=== PATIENT | male | born 1980 | race Caucasian/White ===

== ENCOUNTER 2018-08-20 19:23 | Observation (INO) | payer BC ==
[~2018-08-20] VITALS: Ht 175.3 cm; Wt 94.8 kg
--- NOTE | 2018-08-20 22:16 | ERD ---
ER Documentation Chief Complaint Chief Complaint chest pain HPI The patient is a 38-year-old male, presenting to the ER because of substernal chest pain with dyspnea that began around 1 PM, denies similar symptoms previously, the symptom is worse if he lies down, better with sitting up. He denies similar symptoms previously, denies fever, cough, neck pain, chest pain with exertion/vomiting/radiation/diaphoresis, dyspnea, abdominal pain, vomiting. He does smoke half a pack a day, denies drinking or using illicit drug Medical history/surgical history: None ROS All systems reviewed and are negative except as per history of present illness. Medications Home Meds No Active Prescriptions or Reported Meds Allergies Allergies: Coded Allergies: No Known Allergy (Unverified , 08/20/18) PMhx/Soc Medical and Surgical Hx: pt denies Medical Hx History of Surgery: No Anesthesia Reaction: No Hx Neurological Disorder: No Hx Respiratory Disorders: No Hx Cardiac Disorders: No Hx Psychiatric Problems: No Hx Miscellaneous Medical Probl: No Hx Alcohol Use: No Hx Substance Use: No Hx Tobacco Use: Yes Smoking Status: Current some day smoker Physical Exam Vitals Vital Signs Date Temp Pulse Resp B/P (MAP) Pulse Ox O2 O2 Flow FiO2 Time Delivery Rate 08/21/18 79 18 119/83 100 Room Air 00:28 (95) 08/20/18 83 18 150/95 98 Room Air 21:56 (113) 08/20/18 99.3 92 20 128/82 96 19:30 (97) Physical Exam Const: No acute distress. Head: Atraumatic. Eyes: Normal Conjunctiva. ENT: Normal External Ears, Nose and Mouth. Neck: Full range of motion. No meningismus. Resp: Clear to auscultation bilaterally. Cardio: Regular rate and rhythm. Abd: Soft, non distended, normal bowel sounds, non tender. Skin: No petechiae or rashes. Back: No midline or flank tenderness. Ext: No cyanosis, or edema. Neur: Awake and alert. No focal deficit Psych: Normal Mood and Affect. Result Diagram: 08/20/18221708/20/182217 Results 24 hrs Laboratory Tests Test 08/20/18 22:18 White Blood Count 9.1 10^3/ul Red Blood Count 4.66 10^6/ul Hemoglobin 13.9 g/dl Hematocrit 40.8 % Mean Corpuscular Volume 87.6 fl Mean Corpuscular Hemoglobin 29.8 pg Mean Corpuscular Hemoglobin Concent 34.1 g/dl Red Cell Distribution Width 12.9 % Platelet Count 225 10^3/UL Mean Platelet Volume 10.1 fl Immature Granulocytes % 0.400 % Neutrophils % 75.2 % Lymphocytes % 11.8 % Monocytes % 12.2 % Eosinophils % 0.2 % Basophils % 0.2 % Nucleated Red Blood Cells % 0.0 /100WBC Immature Granulocytes # 0.040 10^3/ul Neutrophils # 6.9 10^3/ul Lymphocytes # 1.1 10^3/ul Monocytes # 1.1 10^3/ul Eosinophils # 0.0 10^3/ul Basophils # 0.0 10^3/ul Nucleated Red Blood Cells # 0.0 10^3/ul Erythrocyte Sedimentation Rate 11 mm/Hr D-Dimer 694.51 ng/ml Sodium Level 135 mmol/L Potassium Level 4.3 mmol/L Chloride Level 98 mmol/L Carbon Dioxide Level 25 mmol/L Anion Gap 12 Blood Urea Nitrogen 14 mg/dl Creatinine 0.70 mg/dl Est Glomerular Filtrat Rate mL/min > 60 mL/min Glucose Level 129 mg/dl Calcium Level 9.2 mg/dl Total Bilirubin 0.7 mg/dl Direct Bilirubin 0.00 mg/dl Indirect Bilirubin 0.7 mg/dl Aspartate Amino Transf (AST/SGOT) 44 IU/L Alanine Aminotransferase (ALT/SGPT) 60 IU/L Alkaline Phosphatase 65 IU/L Troponin I < 0.012 ng/ml Total Protein 8.0 g/dl Albumin 4.6 g/dl Globulin 3.40 g/dl Albumin/Globulin Ratio 1.35 Lipase 29 U/L Current Medications Medications Dose Sig/Parisa Start Time Status Last (Trade) Ordered Route PRN Stop Time Admin Dose Reason Admin Ketorolac 30 mg ONCE STAT 08/20/18 DC 08/20/18 Tromethamine IV 23:02 23:07 (Toradol) 08/20/18 23:04 Procedures/[place] [id number] Radiology Main Line: [phone] DIAGNOSTIC IMAGING REPORT Patient: BRETT BAKER : 1980 Age: 38 Sex: M MR #: [id number] DOS: 08/20/182301 Ordering MD: MARY GONZALEZ MD Location: E/R Room/Bed: PROCEDURE: Chest. CLINICAL INDICATION: Chest pain. TECHNIQUE: Single frontal view of the chest was obtained. COMPARISON: None. FINDINGS: The cardiac silhouette is magnified. The aortic arch is unremarkable. There is bibasilar atelectasis and left basilar infiltrate. There is no vascular congestion or pleural effusion. There is no pneumothorax. IMPRESSION: Bibasilar atelectasis and left basilar infiltrate. .Bharat Ivy MD, MD Date Time Electronically viewed and signed by .Bharat Ivy MD, on 08/21/2018 00:40 .T/ CC: MARY GONZALZE MD [id number] [place] [address] Radiology Main Line: [phone] DIAGNOSTIC IMAGING REPORT Patient: BRETT BAKER : 1980 Age: 38 Sex: M MR #: [id number] DOS: 08/20/182301 Ordering MD: MARY GONZALEZ MD Location: E/R Room/Bed: PROCEDURE: Abdominal ultrasound, limited. CLINICAL INDICATION: Abdominal pain. TECHNIQUE: Multiple real-time images were acquired of the patient's right upper abdomen utilizing a high resolution transducer. COMPARISON: None FINDINGS: The liver demonstrates increased echogenicity and size measuring 18.9 cm. There is no focal mass or intrahepatic biliary ductal dilatation. The portal vein is patent. The gallbladder is not distended. No gallstones are identified. There is echogenic sludge within the gallbladder. There is no pericholecystic fluid or gallbladder wall thickening. The common bile duct measures 5.5 mm in maximal dimension. The pancreas is obscured by overlying bowel gas. No free fluid is identified. The right kidney is normal size and echogenicity measuring 11.8 cm. There is no focal renal mass or echogenic calculus identified. There is no obstructive uropathy. IMPRESSION: Gallbladder sludge without ultrasound evidence of cholecystitis. Mildly enlarged liver with fatty infiltration. Pancreas obscured by overlying bowel gas. .Bharat Ivy MD, MD Date Time Electronically viewed and signed by .Bharat Ivy MD, MD on 08/21/2018 00:46 .T/ CC: MARY GONZALEZ MD [id number] Chest CTA pending EK:33 PM read by emergency physician Rate/Rhythm: Normal Sinus Rhythm 90 beats/min QRS, ST, T-waves: No ST elevation, no T inversion, diffuse ST elevation Impression: Abnormal EKG, suspected acute pericarditis EK:10 PM read by emergency physician Rate/Rhythm: Normal Sinus Rhythm 82 beats/min QRS, ST, T-waves: No ST elevation, no T inversion, diffuse ST elevation Impression: Abnormal EKG, suspected acute pericarditis MEDICAL MAKING DECISION: The patient is a 38-year-old male, presenting with acute chest pain that is suspicious for acute pericarditis, acute pneumonia. He was treated with Toradol 30 mg IV for pain upon arrival, Motrin 600 mg p.o. for acute pericarditis, Rocephin IV and Zithromax IV for acute pneumonia with good response. The differential diagnoses considered include but are not limited to asthma, COPD, pneumonia, pulmonary embolus, pleural effusion, congestive heart failure. Departure Diagnosis: Primary Impression: Pneumonia Additional Impression: Pericarditis Condition: Stable Comments I discussed the findings with the patient. I discussed the patient with Dr Flores at 1:30 a , who was made aware of the lab, the treatment, the patient condition. The patient is admitted to tel obs Disclaimer: Inadvertent spelling and grammatical errors are likely due to EHR/dictation software use and do not reflect on the overall quality of patient care. Also, please note that the electronic time recorded on this note does not necessarily reflect the actual time of the patient encounter. MARY GONZALEZ MD Aug 20, 2018 22:16
[2018-08-20] MEDS ORDERED: KETOROLAC 30 MG INJ IV STA (23:02)
[2018-08-21] VITALS (10 sets, daily range): BP systolic 112–127; BP diastolic 67–73; PULSE 70–90; RESP 16–20; Ht 175.3 cm; Wt 94.8 kg
[2018-08-21] MEDS ORDERED: CEFTRIAXONE 1 GM/50 ML (PMX) 50 ML IVPB ONE (01:30)
[2018-08-21] MEDS ORDERED: IBUPROFEN 600 MG TAB PO ONE (01:30)
[2018-08-21] MEDS ORDERED: AZITHROMYCIN 500MG/NS (PMX) 250 ML IVPB ONE (01:30)
[2018-08-21] MEDS ORDERED: ONDANSETRON 4 MG INJ IV PRN (02:30)
[2018-08-21] MEDS ORDERED: NITROGLYCERIN (SL) 0.4 MG TAB SL PRN (02:30)
[2018-08-21] MEDS ORDERED: ACETAMINOPHEN 325 MG TAB PO PRN (02:30)
[2018-08-21] MEDS ORDERED: NACL 0.9% 3 ML SYG IV SCH (02:30)
[2018-08-21] MEDS: IBUPROFEN 200 MG TAB PO SCH ×4 (02:30→20:54)
[2018-08-21] MEDS ORDERED: ALBUTEROL/IPRATROPIUM (NEB) 3 ML AMP HHN PRN (02:30)
[2018-08-21] MEDS ORDERED: IOHEXOL 300MG/ML 150 ML BTL ONE (03:25)
[2018-08-21] MEDS ORDERED: SOD CHLORIDE 0.9% 100 ML ONE (03:25)
[2018-08-21] MEDS: HYDROCODONE/APAP (5/325) TAB PO PRN ×2 (04:28→11:06)
[2018-08-21] MEDS: ASPIRIN 81 MG TAB PO SCH (08:31)
[2018-08-21] MEDS: HEPARIN 5,000 UNIT/1 ML VIAL SC SCH ×2 (08:38→20:58)
--- NOTE | 2018-08-21 09:32 | HP ---
Date/Time of Note Date/Time of Note DATE: 08/21/18 TIME: 09:26 Assessment/Plan VTE Prophylaxis Pharmacological prophylaxis: heparin Lines/Catheters IV Catheter Type (from Nrsg): Peripheral IV Assessment/Plan Assessment/Plan 1. Chest pain, most likely secondary to pericarditis -Patient reported having had watery diarrhea for the past 3 days, so suspect viral etiology -will however rule out ACS -He will be placed on NSAIDs, colchicine and also steroid -Repeat EKG -Obtain a 2D echo and place a cardiology consult 2. Pericardial effusion: Likely secondary to above 3. Questionable pneumonia: Empiric antibiotic 4. Diarrhea: Resolved Result Diagram: 08/21/18 0642 08/21/18 0642 Results 24hrs Laboratory Tests Test 08/20/18 22:18 08/21/18 06:42 White Blood Count 9.1 5.7 # Red Blood Count 4.66 L 4.26 L Hemoglobin 13.9 L 12.5 L Hematocrit 40.8 L 36.9 L Mean Corpuscular Volume 87.6 86.6 Mean Corpuscular Hemoglobin 29.8 29.3 Mean Corpuscular Hemoglobin Concent 34.1 33.9 Red Cell Distribution Width 12.9 13.2 Platelet Count 225 169 # Mean Platelet Volume 10.1 10.0 Immature Granulocytes % 0.400 0.200 Neutrophils % 75.2 55.2 Lymphocytes % 11.8 L 24.4 Monocytes % 12.2 H 19.7 H Eosinophils % 0.2 0.3 Basophils % 0.2 0.2 Nucleated Red Blood Cells % 0.0 0.0 Immature Granulocytes # 0.040 H 0.010 Neutrophils # 6.9 3.2 Lymphocytes # 1.1 1.4 Monocytes # 1.1 H 1.1 H Eosinophils # 0.0 0.0 Basophils # 0.0 0.0 Nucleated Red Blood Cells # 0.0 0.0 Erythrocyte Sedimentation Rate 11 D-Dimer 694.51 H Sodium Level 135 137 Potassium Level 4.3 4.0 Chloride Level 98 102 Carbon Dioxide Level 25 25 Anion Gap 12 10 Blood Urea Nitrogen 14 11 Creatinine 0.70 0.63 Est Glomerular Filtrat Rate mL/min > 60 > 60 Glucose Level 129 112 Calcium Level 9.2 8.7 Total Bilirubin 0.7 1.0 Direct Bilirubin 0.00 0.00 Indirect Bilirubin 0.7 1.0 Aspartate Amino Transf (AST/SGOT) 44 38 Alanine Aminotransferase (ALT/SGPT) 60 50 Alkaline Phosphatase 65 50 Troponin I < 0.012 < 0.012 Total Protein 8.0 6.6 # Albumin 4.6 3.8 Globulin 3.40 H 2.80 Albumin/Globulin Ratio 1.35 1.35 Lipase 29 Hemoglobin A1c 5.8 Magnesium Level 2.0 Creatine Kinase 111 Creatine Kinase Index 1.6 Creatinine Kinase MB (Mass) 1.77 Triglycerides Level 60 Cholesterol Level 102 LDL Cholesterol, Calculated 60 HDL Cholesterol 30 Cholesterol/HDL Ratio 3.4 Thyroid Stimulating Hormone (TSH) 0.637 HPI/ROS Admit Date/Time Admit Date/Time Aug 21, 2018 at 01:29 Hx of Present Illness This is a 38-year-old male with no significant past medical history who presents the ER complaining of chest pain. Symptoms been going on for the past few days. He said pain almost only occurs when he takes a deep breath. On further questioning, he reported having had watery diarrhea for the past 3 days. Chest pain is mainly located in the mid chest. Initially it was radiating into his left arm and bilateral jaw. Pain was described as pressure-like. Denied a history of chest pain in the past. 20 presented to ER, vitals were stable. EKG shows diffuse ST elevation. T roponin so far have been negative. Chest x-ray shows left basilar infiltrate and bilateral atelectasis. CTPA shows Fairly large areas of bilateral lower lobe infiltrates and moderate pericardial effusion. PMH/Family/Social Past Medical History Medical History: no pertinent history Medications Current Medications IV Flush (NS 3 ml) 3 ml PER PROTOCOL IV ; Start 08/21/18 at 02:30 Ondansetron HCl (Zofran Inj) 4 mg Q6H PRN IV NAUSEA/VOMITING; Start 08/21/18 at 02:30 Aspirin (Aspirin) 81 mg DAILY PO Last administered on 08/21/18at 08:31; Admin Dose 81 MG; Start 08/21/18 at 09:00 Nitroglycerin (Nitroglycerin (Sl Tab) 0.4 Mg) 1 tab Q5M PRN SL .CHEST PAIN; Start 08/21/18 at 02:30 Acetaminophen (Tylenol Tab) 650 mg Q6H PRN PO .PAIN 1-3 OR TEMP; Start 08/21/18 at 02:30 Acetaminophen/ Hydrocodone Bitart ([place] (5/325)) 1 tab Q6H PRN PO .PAIN 4-6 Last administered on 08/21/18at 04:28; Admin Dose 1 TAB; Start 08/21/18 at 02:30 Heparin Sodium (Porcine) (Heparin (5000 Units/1ml)) 5,000 unit Q12 SC Last ad ministered on 08/21/18at 08:38; Admin Dose 5,000 UNIT; Start 08/21/18 at 09:00 Albuterol/ Ipratropium (Duoneb) 3 ml Q2H RESP THERAPY PRN HHN SHORTNESS OF BREATH; Start 08/21/18 at 02:30 Ibuprofen (Motrin) 400 mg Q6H PO Last administered on 08/21/18at 08:32; Admin Dose 400 MG; Start 08/21/18 at 02:30 Colchicine (Colchicine) 0.6 mg BID PO ; Start 08/21/18 at 09:30; Status UNV Methylprednisolone Sodium Succinate (Solu-Medrol) 60 mg DAILY IV ; Start 08/21/18 at 09:30; Status UNV Levofloxacin/ Dextrose 100 ml @ 100 mls/hr Q24H IVPB ; Start 08/21/18 at 09:30; Status UNV Coded Allergies: No Known Allergy (Unverified , 08/20/18) Past Surgical History Past Surgical Hx: no surgical history Family History Significant Family History: no pertinent family hx Social History Alcohol Use: none Smoking Status: Current every day smoker Drug Use: none Exam/Review of Systems Vital Signs Vitals Vital Signs Date Temp Pulse Resp B/P (MAP) Pulse Ox O2 O2 Flow FiO2 Time Delivery Rate 08/21/18 77 08:25 08/21/18 98.3 18 112/69 93 Room Air 07:52 (83) 08/21/18 2.0 04:46 Intake and Output 08/20/18 08/20/18 08/21/18 1515:00 23:00 07:00 IntakeIntake Total 500 ml BalanceBalance 500 ml Exam Constitutional: alert, oriented, well developed Head: normocephalic, atraumatic Eyes: EOMI, PERRL Respiratory: clear to auscultation, normal air movement Cardiovascular: regular rate and rhythm, nl pulses Gastrointestinal: soft, non-tender Extremities: normal pulses PURVI BYRD MD Aug 21, 2018 09:32
[2018-08-21] MEDS: METHYLPREDNISOLONE 125 MG INJ IV SCH (10:49)
[2018-08-21] MEDS: COLCHICINE 0.6 MG TAB PO SCH ×2 (10:49→20:54)
[2018-08-21] MEDS: LEVOFLOXACIN 500MG/D5W (PMX) 100 ML IVPB SCH (10:50)
--- NOTE | 2018-08-21 14:44 | PN ---
Date/Time of Note Date/Time of Note DATE: 08/21/18 TIME: 14:42 Assessment/Plan VTE Prophylaxis Risk score (from Ns)>0 risk: 1 [place] [facility] [place] contraindicated: other Pharmacological prophylaxis: heparin Lines/Catheters IV Catheter Type (from [facility]): Peripheral IV Assessment/Plan Hospital Course S: Patient still having some occasional chest pain, getting colchicine, steroids and ibuprofen. Still waiting to be seen by cardiology team. No acute events overnight. O: VS - see below PE: Gen: Lying in bed, no acute distress. Head: Atraumatic. Eyes: Normal Conjunctiva. ENT: Normal External Ears, Nose and Mouth. Neck: Full range of motion. No meningismus. Resp: Clear to auscultation bilaterally. Cardio: Regular rate and rhythm. Abd: Soft, non distended, normal bowel sounds, non tender. Ext: No lower extremity edema bilaterally Neur: No focal deficits Assessment/Plan: 38-year-old male who presents with: 1. Chest pain, most likely secondary to pericarditis -Patient reported having had watery diarrhea for the past 3 days, so suspect viral etiology -will however rule out ACS -He will be placed on NSAIDs, colchicine and also steroid -Repeat EKG -Obtain a 2D echo and place a cardiology consult 2. Pericardial effusion: Likely secondary to above 3. Questionable pneumonia: Empiric antibiotic 4. Diarrhea: Resolved Result Diagram: 08/21/18 0642 08/21/18 0642 Results 24hrs Laboratory Tests Test 08/20/18 22:18 08/21/18 06:42 08/21/18 11:05 White Blood Count 9.1 5.7 # Red Blood Count 4.66 L 4.26 L Hemoglobin 13.9 L 12.5 L Hematocrit 40.8 L 36.9 L Mean Corpuscular Volume 87.6 86.6 Mean Corpuscular Hemoglobin 29.8 29.3 Mean Corpuscular Hemoglobin Concent 34.1 33.9 Red Cell Distribution Width 12.9 13.2 Platelet Count 225 169 # Mean Platelet Volume 10.1 10.0 Immature Granulocytes % 0.400 0.200 Neutrophils % 75.2 55.2 Lymphocytes % 11.8 L 24.4 Monocytes % 12.2 H 19.7 H Eosinophils % 0.2 0.3 Basophils % 0.2 0.2 Nucleated Red Blood Cells % 0.0 0.0 Immature Granulocytes # 0.040 H 0.010 Neutrophils # 6.9 3.2 Lymphocytes # 1.1 1.4 Monocytes # 1.1 H 1.1 H Eosinophils # 0.0 0.0 Basophils # 0.0 0.0 Nucleated Red Blood Cells # 0.0 0.0 Erythrocyte Sedimentation Rate 11 D-Dimer 694.51 H Sodium Level 135 137 Potassium Level 4.3 4.0 Chloride Level 98 102 Carbon Dioxide Level 25 25 Anion Gap 12 10 Blood Urea Nitrogen 14 11 Creatinine 0.70 0.63 Est Glomerular Filtrat Rate mL/min > 60 > 60 Glucose Level 129 112 Calcium Level 9.2 8.7 Total Bilirubin 0.7 1.0 Direct Bilirubin 0.00 0.00 Indirect Bilirubin 0.7 1.0 Aspartate Amino Transf (AST/SGOT) 44 38 Alanine Aminotransferase (ALT/SGPT) 60 50 Alkaline Phosphatase 65 50 Troponin I < 0.012 < 0.012 < 0.012 Total Protein 8.0 6.6 # Albumin 4.6 3.8 Globulin 3.40 H 2.80 Albumin/Globulin Ratio 1.35 1.35 Lipase 29 Hemoglobin A1c 5.8 Magnesium Level 2.0 Creatine Kinase 111 84 Creatine Kinase Index 1.6 1.5 Creatinine Kinase MB (Mass) 1.77 1.28 Triglycerides Level 60 Cholesterol Level 102 LDL Cholesterol, Calculated 60 HDL Cholesterol 30 Cholesterol/HDL Ratio 3.4 Thyroid Stimulating Hormone (TSH) 0.637 Exam/Review of Systems Exam Vitals Vital Signs Date Temp Pulse Resp B/P (MAP) Pulse Ox O2 O2 Flow FiO2 Time Delivery Rate 08/21/18 87 13:25 08/21/18 98.7 16 112/68 98 Room Air 11:13 (83) 08/21/18 2.0 04:46 Intake and Output 08/20/18 08/20/18 08/21/18 1414:59 22:59 06:59 IntakeIntake Total 500 ml BalanceBalance 500 ml Results Results 24hrs Laboratory Tests Test 08/20/18 22:18 08/21/18 06:42 08/21/18 11:05 White Blood Count 9.1 5.7 # Red Blood Count 4.66 L 4.26 L Hemoglobin 13.9 L 12.5 L Hematocrit 40.8 L 36.9 L Mean Corpuscular Volume 87.6 86.6 Mean Corpuscular Hemoglobin 29.8 29.3 Mean Corpuscular Hemoglobin Concent 34.1 33.9 Red Cell Distribution Width 12.9 13.2 Platelet Count 225 169 # Mean Platelet Volume 10.1 10.0 Immature Granulocytes % 0.400 0.200 Neutrophils % 75.2 55.2 Lymphocytes % 11.8 L 24.4 Monocytes % 12.2 H 19.7 H Eosinophils % 0.2 0.3 Basophils % 0.2 0.2 Nucleated Red Blood Cells % 0.0 0.0 Immature Granulocytes # 0.040 H 0.010 Neutrophils # 6.9 3.2 Lymphocytes # 1.1 1.4 Monocytes # 1.1 H 1.1 H Eosinophils # 0.0 0.0 Basophils # 0.0 0.0 Nucleated Red Blood Cells # 0.0 0.0 Erythrocyte Sedimentation Rate 11 D-Dimer 694.51 H Sodium Level 135 137 Potassium Level 4.3 4.0 Chloride Level 98 102 Carbon Dioxide Level 25 25 Anion Gap 12 10 Blood Urea Nitrogen 14 11 Creatinine 0.70 0.63 Est Glomerular Filtrat Rate mL/min > 60 > 60 Glucose Level 129 112 Calcium Level 9.2 8.7 Total Bilirubin 0.7 1.0 Direct Bilirubin 0.00 0.00 Indirect Bilirubin 0.7 1.0 Aspartate Amino Transf (AST/SGOT) 44 38 Alanine Aminotransferase (ALT/SGPT) 60 50 Alkaline Phosphatase 65 50 Troponin I < 0.012 < 0.012 < 0.012 Total Protein 8.0 6.6 # Albumin 4.6 3.8 Globulin 3.40 H 2.80 Albumin/Globulin Ratio 1.35 1.35 Lipase 29 Hemoglobin A1c 5.8 Magnesium Level 2.0 Creatine Kinase 111 84 Creatine Kinase Index 1.6 1.5 Creatinine Kinase MB (Mass) 1.77 1.28 Triglycerides Level 60 Cholesterol Level 102 LDL Cholesterol, Calculated 60 HDL Cholesterol 30 Cholesterol/HDL Ratio 3.4 Thyroid Stimulating Hormone (TSH) 0.637 Medications Medication Current Medications IV Flush (NS 3 ml) 3 ml PER PROTOCOL IV ; Start 08/21/18 at 02:30 Ondansetron HCl (Zofran Inj) 4 mg Q6H PRN IV NAUSEA/VOMITING; Start 08/21/18 at 02:30 Aspirin (Aspirin) 81 mg DAILY PO Last administered on 08/21/18at 08:31; Admin Dose 81 MG; Start 08/21/18 at 09:00 Nitroglycerin (Nitroglycerin (Sl Tab) 0.4 Mg) 1 tab Q5M PRN SL .CHEST PAIN; Start 08/21/18 at 02:30 Acetaminophen (Tylenol Tab) 650 mg Q6H PRN PO .PAIN 1-3 OR TEMP; Start 08/21/18 at 02:30 Acetaminophen/ Hydrocodone Bitart ([place] (5/325)) 1 tab Q6H PRN PO .PAIN 4-6 Last administered on 08/21/18 11:06; Admin Dose 1 TAB; Start 08/21/18 at 02:30 Heparin Sodium (Porcine) (Heparin (5000 Units/1ml)) 5,000 unit Q12 SC Last administered on 08/21/18 08:38; Admin Dose 5,000 UNIT; Start 08/21/18 at 09:00 Albuterol/ Ipratropium (Duoneb) 3 ml Q2H RESP THERAPY PRN HHN SHORTNESS OF BREATH; Start 08/21/18 at 02:30 Ibuprofen (Motrin) 400 mg Q6H PO Last administered on 08/21/18 13:46; Admin Dose 400 MG; Start 08/21/18 at 02:30 Colchicine (Colchicine) 0.6 mg BID PO Last administered on 08/21/18 10:49; Admin Dose 0.6 MG; Start 08/21/18 at 09:30 Methylprednisolone Sodium Succinate (Solu-Medrol) 60 mg DAILY IV Last administered on 08/21/18 10:49; Admin Dose 60 MG; Start 08/21/18 at 09:30 Levofloxacin/ Dextrose 100 ml @ 100 mls/hr Q24H IVPB Last administered on 08/21/18 10:50; Admin Dose 100 MLS/HR; Start 08/21/18 at 09:30 ALISSA EDEN Aug 21, 2018 14:44
--- NOTE | 2018-08-21 17:01 | RADRPT ---
Vent Rate: 82 bpm RR Interval: 0 msec TN Interval: 144 msec QRS Duration: 104 msec QT Interval: 366 msec QTC Interval: 427 msec P-R-T [place]: 28 - 48 - 46 degrees Normal sinus rhythm Diffuse ST segment abn, possible Acute pericarditis Abnormal ECG Electronically Signed By: Naun Salazar
--- NOTE | 2018-08-21 21:56 | RADRPT ---
Echocardiogram Report Patient Name: Nemesio BAKERtient ID: [id number] : 1980 (38y 6m)Study Date: 08/21/2018 11:13:44 AM Gender: MAccession #: [id number] Tech: Nixon Ye [facility] Location: 8-A Ref.Physician: PURVI BYRD Height(Cm): BSA: Weight(Kg): Quality: AdequateAccount #: Procedures: Echocardiographic Report: Transthoracic echocardiogram with complete 2D, M-Mode, and doppler examination. Indications: Chest Pain. Measurements: 2D/M Mode Doppler Measurement Value Normal Range Measurement Value Normal Range LVIDd 2D 4.5 [ 4.2 - 5.8 ] cm AV Peak Max 1.2 [ 100.0 - 170.0 ] cm/sec LVIDs 2D 3.0 [ 2.5 - 4.0 ] cm AV Peak PG 6.0 [ 2.0 - 9.0 ] mmHg LVPWd 2D 1.0 [ 0.6 - 1.0 ] cm LVOT Peak Amx 0.9 [ 70.0 - 110.0 ] cm/sec IVSd 2D 1.4 [ 0.6 - 1.0 ] cm LVOT Peak PG 3.0 [ 2.0 - 6.0 ] mmHg AoR Diam 2D 2.8 [ 2.6 - 3.4 ] cm MV E Peak Max 0.6 [ 60.0 - 130.0 ] cm/sec EDV 2D 92.4 [ 62.0 - 150.0 ] ml MV A Peak Max 0.4 [ 100.0 - 120.0 ] cm/sec ESV 2D 36.4 [ 21.0 - 61.0 ] ml MV E/A 1.4 [ 0.8 - 1.5 ] ratio EF 2D 60.6 [ 52.0 - 72.0 ] percent MV Decel Time 211 [ 104 - 258 ] msec LA Dimen 2D 3.0 [ 3.0 - 4.0 ] cm Lat E` Max 0.1 [ 10.0 - 15.0 ] cm/sec Lateral E/E` 10.8 [ 1.0 - 2.0 ] ratio MV E/A 1.4 [ 0.8 - 1.5 ] ratio TR Peak Max 2.2 [ 100.0 - 280.0 ] cm/sec TR Peak PG 19.0 mmHg RVSP 27.0 [ 10.0 - 36.0 ] mmHg Findings: Left Ventricle: Normal left ventricular systolic function. Normal left ventricular cavity size. Mild asymmetric septal hypertrophy. Ejection fraction is visually estimated at 55 %. Tissue Doppler/Mitral Doppler indices are consistent with impaired relaxation (Stage I diastolic dysfunction). Right Ventricle: Normal right ventricular systolic function. Moderate enlargement of right ventricle. Left Atrium: The left atrium is normal in size. Right Atrium: There is moderate enlargement of right atrium. Mitral Valve: Mild mitral leaflet calcification. Mild mitral annular calcification. Trace mitral regurgitation. Aortic Valve: No hemodynamically significant aortic stenosis by doppler. Aortic cusps appear mildly calcified. Tricuspid Valve: Normal appearance of the tricuspid valve. Estimated peak PA systolic pressure 27 mmHg. There is mild tricuspid regurgitation. Pulmonic Valve: Normal pulmonic valve appearance. Pericardium: small to moderate pericardial effusion. Aorta: Normal aortic root. IVC: Normal size with poor respiratory collapse consistent with elevated right atrial pressure. Conclusions: Normal left ventricular systolic function. Normal left ventricular cavity size. Mild asymmetric septal hypertrophy. Ejection fraction is visually estimated at 55 %. Tissue Doppler/Mitral Doppler indices are consistent with impaired relaxation (Stage I diastolic dysfunction). There is moderate enlargement of right atrium. Mild mitral leaflet calcification. Mild mitral annular calcification. Trace mitral regurgitation. Normal appearance of the tricuspid valve. Estimated peak PA systolic pressure 27 mmHg. There is mild tricuspid regurgitation. small to moderate pericardial effusion. Electronically Signed By: Buster Dominguez 2018-08-21 21:55:31 PDT
--- NOTE | 2018-08-21 22:41 | CONS ---
DATE OF ADMISSION: 08/21/2018 DATE OF CONSULTATION: 08/21/2018 REASON FOR CONSULTATION: Chest pain, and acute coronary syndrome. REQUESTING PHYSICIAN: Dr. Eden, from the hospitalist service. HISTORY OF PRESENT ILLNESS: The patient is a very pleasant 38-year-old male without significant past medical history who presented with complaints of chest pain, worse lying down, deep inspiration and associated shortness of breath ongoing for 2 to 3 days. At this time, the patient had diarrhea x2 to 3 days. The patient presented to the emergency department where upon arrival, temperature of 99.3, blood pressure 128/82, pulse 92, respirations 20, saturating 98%. The patient's labs, white count 9. 1 and 30.9, platelet 225. ESR of 11. Sodium 135, potassium 4.3, creatinine 0.7, BUN 14. Troponin n egative. Lipase of 29. TSH of 0.637. D-dimer 694. The patient underwent a gallbladder ultrasound, which revealed gallbladder sludge without ultrasound evidence of cholecystitis, mildly enlarged live r and fatty infiltration, a chest x-ray revealed bibasilar atelectasis and left basilar infiltrate an d chest CTA showed no evidence of pulmonary embolus or aortic dissection, fairly large area of bilate ral lobe infiltrates, questionable pneumonia, moderate pericardial effusion. ECG revealed sinus rhythm at a rate of [address] defect elevations diffusely, most pronounced in tammy ds II, III, F, V5 and V6. IMPRESSION: 1. Chest pain with sinus status post EKG being most consistent with a likely diagnosis of pericardit is. 2. Probable pericarditis. 3. Abnormal electrocardiogram with ST elevation diffusely consistent with pericarditis. 4. Possible pneumonia by CT and chest x-ray. 5. Loose stools, now resolved. 6. Elevated D-dimer with negative CTA for pulmonary embolism. 7. Pericardial effusion by CT with no signs of hemodynamic consequence at this time by vital signs a nd physical exams. RECOMMENDATIONS: 1. At this time, we would maintain the patient on telemetry monitoring to follow rhythm and rate con trol closely. 2. We will follow up patient's 2D echo to assess ejection fraction, wall motion, and assess for sign ificant pericardial effusion as per CT. 3. Continue the patient's on ibuprofen, which has been started and patient recently placed on colchi cine at this time. Follow up with resolution of symptoms. 4. Continue the patient's current aspirin. 5. Continue to follow serial EKGs. 6. Check a fasting lipid panel and initiate the medication as necessary. 7. Continue the patient's antibiotics and follow up all culture data and the patient was started on steroids, if that is done for pericarditis we would recommend just starting with colchicine and reser ving for steroids for refractory symptoms. Thank you for allowing us to take part in the care of this patient. I will continue to follow closel y with you, with recommendations to be made as the patient progresses through his inpatient hospital clinical course. Dictated By: MADELEINE KENNY/OSITO Conf#: [id number] DID#: [id number] CC: ALISSA EDEN; PURVI BYRD MD;*End*
[2018-08-22] VITALS: BP 120/69; PULSE 76; PULSE 78; RESP 18
[2018-08-22] MEDS: IBUPROFEN 200 MG TAB PO SCH ×2 (02:30→08:42)
[2018-08-22 04:00] VITALS: BP 103/59; PULSE 71; PULSE 74; RESP 18
[2018-08-22 08:21] VITALS: PULSE 81
[2018-08-22] MEDS: METHYLPREDNISOLONE 125 MG INJ IV SCH (08:42)
[2018-08-22] MEDS: ASPIRIN 81 MG TAB PO SCH (08:42)
[2018-08-22] MEDS: LEVOFLOXACIN 500MG/D5W (PMX) 100 ML IVPB SCH (08:42)
[2018-08-22] MEDS: COLCHICINE 0.6 MG TAB PO SCH (08:42)
[2018-08-22] MEDS: HEPARIN 5,000 UNIT/1 ML VIAL SC SCH (08:50)
[2018-08-22 08:53] VITALS: BP 116/64; PULSE 81; RESP 20
--- NOTE | 2018-08-22 11:27 | PDOCDIS ---
Discharge Instructions CONDITION [id number] Patient Condition: [id number] Stable ACTIVITY: [id number] Activity Restrictions: [id number] Slowly Increase Activity Rest between Activity Avoid heavy lifting FOLLOW UP/APPOINTMENTS Follow-up Plan Please take your medications as prescribed. Please follow-up with your doctor in the clinic in the next few days. If you experience any further chest pain or fever chills, please call your therapeutic consultant, call your primary care doctor, or call 911 or go to the ER. ALISSA EDEN Aug 22, 2018 11:27
[2018-08-22] MEDS ORDERED: Colchicine PO (11:28)
[2018-08-22] MEDS ORDERED: Ibuprofen PO (11:28)
--- NOTE | 2018-08-22 11:33 | DS ---
Date/Time of Note Date/Time of Note DATE: 08/22/18 TIME: 11:28 Discharge Summary Admission/Discharge Info Admit Date/Time Aug 21, 2018 at 01:29 Discharge Date/Time Discharge Diagnosis 1. Chest pain-secondary to pericarditis, improving. Ruled out for ACS 2. Pericardial effusion: Likely secondary to above 3. Questionable pneumonia: Empiric antibiotic received for 2 days, white blood cell count stable. No cough, no fevers. 4. Diarrhea: Resolved Patient Condition: Stable Procedures A. CTA chest: August 21, 2018: IMPRESSION: 1. No evidence for pulmonary embolus or aortic dissection. 2. Fairly large areas of bilateral lower lobe infiltrates. Question pneumonia. 3. Moderate pericardial effusion. This could be due to pericarditis from a variety of etiologies. B. 2D echo August 21, 2018: Conclusions: Normal left ventricular systolic function. Normal left ventricular cavity size. Mild asymmetric septal hypertrophy. Ejection fraction is visually estimated at 55 %. Tissue Doppler/Mitral Doppler indices are consistent with impaired relaxation (Stage I diastolic dysfunction). There is moderate enlargement of right atrium. Mild mitral leaflet calcification. Mild mitral annular calcification. Trace mitral regurgitation. Normal appearance of the tricuspid valve. Estimated peak PA systolic pressure 27 mmHg. There is mild tricuspid regurgitation. small to moderate pericardial effusion. Hx of Present Illness 38-year-old male with no significant past medical history who presents the ER complaining of chest pain. Symptoms been going on for the past few days. He said pain almost only occurs when he takes a deep breath. On further questioning, he reported having had watery diarrhea for the past 3 days. Chest pain is mainly located in the mid chest. Initially it was radiating into his left arm and bilateral jaw. Pain was described as pressure-like. Denied a history of chest pain in the past. 20 presented to ER, vitals were stable. EKG shows diffuse ST elevation. Troponin so far have been negative. Chest x-ray shows left basilar infiltrate and bilateral atelectasis. CTPA shows Fairly large areas of bilateral lower lobe infiltrates and moderate pericardial effusion. Hospital Course Patient was admitted to telemetry floor. Seen by cardiology team. Patient was initially started on low-dose antibiotics given the chest x-ray findings, but also colchicine and ibuprofen along with steroids. Patient's chest pain symptoms slowly improved. No fevers, white blood cell count was stable. No signs of any arrhythmias. No cough. He was able to tolerate diet, ambulate. After getting clearance from edi consultant teams she will be discharged home today improved condition. See below for full list of discharge medications. Home Meds Active Scripts [Ibuprofen] 200 MG TAB No Conflict Check, 400 MG PO Q6H for 7 Days, #28 Prov:ALISSA EDEN. 08/22/18 [Colchicine] 0.6 MG TAB No Conflict Check, 0.6 MG PO BID for 7 Days, #14 Prov:ALISSA EDEN S. 08/22/18 Follow-up Plan Please take your medications as prescribed. Please follow-up with your doctor in the clinic in the next few days. If you experience any further chest pain or fever chills, please call your special service officer, call your primary care doctor, or call 911 or go to the ER. Primary Care Provider Not On Staff Doctor Time spent on discharge: > 30 minutes Pending Labs Laboratory Tests Test 08/22/18 06:17 White Blood Count 11.2 10^3/ul (4.8-10.8) Red Blood Count 4.26 10^6/ul (4.70-6.10) Hemoglobin 12.4 g/dl (14.0-18.0) Hematocrit 37.8 % (42.0-52.0) Mean Corpuscular Volume 88.7 fl (82.0-101.0) Mean Corpuscular Hemoglobin 29.1 pg (29.0-33.0) Mean Corpuscular Hemoglobin Concent 32.8 g/dl (32.0-37.0) Red Cell Distribution Width 13.1 % (11.5-14.5) Platelet Count 195 10^3/UL (140-415) Mean Platelet Volume 9.9 fl (7.4-10.4) Immature Granulocytes % 0.300 % (0.001-0.429) Neutrophils % % (39.0-77.0) Segmented Neutrophils % (Manual) 61 % (39-77) Band Neutrophils % (Manual) 3 % (0-4) Lymphocytes % % (15.0-51.0) Lymphocytes % (Manual) 22 % (15-51) Reactive Lymphocytes % (Manual) 4 % (0-0) Monocytes % % (0.0-11.0) Monocytes % (Manual) 10 % (0-11) Eosinophils % % (0.0-7.0) Basophils % % (0.0-2.0) Nucleated Red Blood Cells % 0.0 /100WBC (0.0-0.0) Immature Granulocytes # 0.030 10^3/ul (0.0-0.031) Neutrophils # 10^3/ul (1.6-7.5) Neutrophils # (Manual) 6.9 10^3/ul (1.6-7.5) Band Neutrophils # 0.3 10^3/ul (0.0-0.6) Lymphocytes (Manual) 2.4 10^3/ul (0.8-2.9) Lymphocytes # 10^3/ul (0.8-2.9) Reactive Lymphocytes # 0.4 10^3/ul (0.0-0.0) Monocytes # 10^3/ul (0.3-0.9) Monocytes # (Manual) 1.1 10^3/ul (0.3-0.9) Eosinophils # 10^3/ul (0.0-0.5) Basophils # 10^3/ul (0.0-0.1) Nucleated Red Blood Cells # 10^3/ul (0.0-0.0) Platelet Estimate NORMAL Polychromasia 3+ (0-0) Poikilocytosis 1+ (0-0) Anisocytosis 1+ (0-0) Microcytosis 1+ (0-0) Target Cells 1+ (0-0) Sodium Level 140 mmol/L (135-144) Potassium Level 4.2 mmol/L (3.5-5.1) Chloride Level 105 mmol/L (97-110) Carbon Dioxide Level 29 mmol/L (21-31) Anion Gap 6 (5-13) Blood Urea Nitrogen 13 mg/dl (7-20) Creatinine 0.64 mg/dl (0.61-1.24) Est Glomerular Filtrat Rate mL/min > 60 mL/min (>60) Glucose Level 114 mg/dl (70-220) Calcium Level 9.1 mg/dl (8.4-10.2) Phosphorus Level 3.4 mg/dl (2.5-4.9) Magnesium Level 2.3 mg/dl (1.7-2.5) ALISSA EDEN Aug 22, 2018 11:33
[2018-08-22 11:38] VITALS: BP 104/58; PULSE 76; RESP 20
== END 2018-08-22 12:15 | disposition home or self-care (01) ==
LOC: E/R 19:23 → TEL 08-21 01:29
PROVIDERS: ADMIT Internal Medicine; ATTEND Hospitalist
DX: I31.9 Disease of pericardium, unspecified (principal); I31.3 Pericardial effusion (noninflammatory); R19.7 Diarrhea, unspecified
CPT/HCPCS: 36415; 71045; 71275; 76705; 80048; 80053; 80061; 82550; 82553; 83036; 83690; 83735; 84100; 84443; 84484; 85025; 85378; 85651; 87040; 93005; 93306; 96374; 99285; G0378; J0456; J0696; J1644; J1885; J1956; J2930; Q9967

== ENCOUNTER 2018-09-10 23:18 | Emergency (ER) | payer BC ==
[~2018-09-10] VITALS: Ht 175.3 cm; Wt 90.0 kg
[~2018-09-10 23:18] MED LIST: Colchicine PO; Ibuprofen PO
[2018-09-10 23:26] VITALS: Ht 175.3 cm; Wt 90.0 kg
[2018-09-10] MEDS ORDERED: morphine 4 MG/ML VIAL IV STA (23:54)
[2018-09-10] MEDS ORDERED: KETOROLAC 30 MG INJ IV STA (23:54)
[2018-09-10] MEDS ORDERED: SOD CHLORIDE 0.9% 1,000 ML IV STA (23:54)
[2018-09-10] MEDS ORDERED: ONDANSETRON 4 MG INJ IV STA (23:54)
--- NOTE | 2018-09-11 00:41 | ERD ---
ER Documentation Chief Complaint Chief Complaint Pt reports Chest pressure started when lying down today HPI 38-year-old gentleman who presents to the emergency room complaining of chest pain. The patient was just admitted 1 to 2 weeks ago for diagnosis of possible pneumonia with acute pericarditis thought to be viral. Patient states that he is taken an NSAID with only moderate relief. The pain is worse when laying flat. He denies pleuritic pain, no shortness of breath no exertional symptoms. No fevers or chills. ROS All systems reviewed and are negative except as per history of present illness. Medications Home Meds Active Scripts Naloxone HCl nasal spray (Narcan 4 mg/0.1 mL nasal) 4 Mg [place], 4 MG NS .Q2-3MIN for OPIOID OVERDOSE, #2 SPRAY 0 Refills [place] 0.1 mL into one nostril. Repeat with second device into other nostril after 2-3 minutes if no or minimal response Prov:BEN SIBLEY MD 09/11/18 Ondansetron (Ondansetron Odt) 4 Mg Tab.rapdis, 4 MG PO Q6H PRN for NAUSEA AND/OR VOMITING, #10 TAB Prov:BEN SIBLEY MD 09/11/18 Hydrocodone/Acetaminophen ([place] 10-325 Tablet) 1 Each Tablet, 1 TAB PO Q6H PRN for PAIN, #12 TAB Prov:BEN SIBLEY MD 09/11/18 Naproxen* (Naprosyn*) 500 Mg Tablet, 500 MG PO BID PRN for PAIN AND/OR INFLAMMATION, #30 TAB Prov:BEN ISBLEY MD 09/11/18 [Ibuprofen] 200 MG TAB No Conflict Check, 400 MG PO Q6H for 7 Days, #28 Prov:ALISSA EDEN S. 08/22/18 [Colchicine] 0.6 MG TAB No Conflict Check, 0.6 MG PO BID for 7 Days, #14 Prov:ALISSA EDEN S. 08/22/18 Allergies Allergies: Coded Allergies: No Known Allergy (Unverified , 08/20/18) PMhx/Soc History of Surgery: Yes (Lasik surgery) Anesthesia Reaction: No Hx Neurological Disorder: No Hx Respiratory Disorders: No Hx Cardiac Disorders: Yes (pericarditis) Hx Psychiatric Problems: No Hx Miscellaneous Medical Probl: No Hx Alcohol Use: No Hx Substance Use: No Hx Tobacco Use: Yes (1 pack/d1qkdis) Smoking Status: Current some day smoker FmHx Family History: No diabetes Physical Exam Vitals Vital Signs Date Temp Pulse Resp B/P (MAP) Pulse Ox O2 O2 Flow FiO2 Time Delivery Rate 09/11/18 70 18 102/62 92 Room Air 02:00 (75) 09/10/18 99.7 81 20 136/74 95 23:26 (94) Physical Exam General: Well developed, well nourished, no acute distress Head: Normocephalic, atraumatic. Eyes: Pupils equally reactive, EOM intact ENT: Moist mucous membranes Neck: Supple, no lymphadenopathy Respiratory: Lungs clear bilaterally, no distress Cardiovascular: RRR, positive friction rub Abdominal: Soft, non-tender, non-distended, no peritoneal signs : Deferred MSK: No edema, no unilateral swelling, 5/5 strength Neurologic: Alert and oriented, moving all extremities, normal speech, no focal weakness, no cerebellar signs Skin: No rash Psych: Normal mood Result Diagram: 09/10/18 0005 09/10/18 0005 Results 24 hrs Laboratory Tests Test 09/10/18 00:05 White Blood Count 5.6 10^3/ul Red Blood Count 4.04 10^6/ul Hemoglobin 11.6 g/dl Hematocrit 35.9 % Mean Corpuscular Volume 88.9 fl Mean Corpuscular Hemoglobin 28.7 pg Mean Corpuscular Hemoglobin Concent 32.3 g/dl Red Cell Distribution Width 12.5 % Platelet Count 267 10^3/UL Mean Platelet Volume 8.7 fl Immature Granulocytes % 0.200 % Neutrophils % 54.6 % Lymphocytes % 28.1 % Monocytes % 13.7 % Eosinophils % 2.9 % Basophils % 0.5 % Nucleated Red Blood Cells % 0.0 /100WBC Immature Granulocytes # 0.010 10^3/ul Neutrophils # 3.0 10^3/ul Lymphocytes # 1.6 10^3/ul Monocytes # 0.8 10^3/ul Eosinophils # 0.2 10^3/ul Basophils # 0.0 10^3/ul Nucleated Red Blood Cells # 0.0 10^3/ul Prothrombin Time 14.5 Sec Prothrombin Time Ratio 1.1 INR International Normalized Ratio 1.12 Activated Partial Thromboplast Time 26.8 Sec Sodium Level 140 mmol/L Potassium Level 4.1 mmol/L Chloride Level 105 mmol/L Carbon Dioxide Level 26 mmol/L Anion Gap 9 Blood Urea Nitrogen 15 mg/dl Creatinine 0.63 mg/dl Est Glomerular Filtrat Rate mL/min > 60 mL/min Glucose Level 101 mg/dl Calcium Level 9.2 mg/dl Troponin I < 0.012 ng/ml Current Medications Medications Dose Sig/Parisa Start Time Status Last (Trade) Ordered Route PRN Stop Time Admin Dose Reason Admin Sodium 1,000 ml @ Q1H STAT 09/10/18 DC 09/11/18 Chloride 1,000 mls/hr IV 23:54 09/11/18 00:10 00:53 Morphine 4 mg ONCE STAT 09/10/18 DC 09/11/18 Sulfate IV 23:54 09/10/18 00:10 (morphine) 23:55 Ondansetron 4 mg ONCE STAT 09/10/18 DC 09/11/18 HCl (Zofran IV 23:54 09/10/18 00:10 Inj) 23:55 Ketorolac 30 mg ONCE STAT 09/10/18 DC 09/11/18 Tromethamine IV 23:54 09/10/18 00:10 (Toradol) 23:55 Procedures/MDM EKG, MONITORS, & DIAGNOSTIC IMAGING: EKG: I reviewed and interpreted a 12-lead EKG. Rhythm: Normal sinus rhythm ST Changes: No contiguous ST segment elevations T waves: No contiguous T wave inversions Impression: No evidence of acute cardiac ischemia Chest x-ray: I reviewed and interpreted a 1 view of the chest Mediastinum: No enlargement Cardiac silhouette: cardiomegaly although consistent with prior chest x-ray patient presents with positional chest pain in the setting of recent diagnosis of pericarditis. His clinical exam and history of very consistent with Airspace: Clear lung emanuel bilaterally without evidence of pneumothorax Bones: No evidence of fracture LAB INTERPRETATION: I reviewed the laboratory testing and it shows no evidence of acute process MEDICAL DECISION MAKING: The patient's clinical exam and history is very consistent with pericarditis. His recent hospitalization confirms this. The patient did have a moderate effusion. His chest x-ray shows evidence of cardiomegaly but it is unchanged from prior chest x-ray. Patient has no clinical signs or symptoms concerning for tamponade. Patient likely requires symptom control with better pain medication. Outpatient cardiology follow-up is still necessary. ER COURSE: * Patient was given pain control medication and nonsteroidal anti-inflammatory. Patient symptoms are improved and is sleeping. At this point the patient's c hest x-ray shows no significant changes. The patient does have likely pericardial effusion, pericarditis but unchanged. No clinical signs or symptoms concerning for systemic illness or tamponade physiology. I do not believe hospitalization is necessary. * I believe the patient can be safely discharged home with nonsteroidal anti- inflammatory, [place] for breakthrough pain. 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 Return precautions were discussed and understood. CONSULTATION: None DISPOSITION PLAN: The patient does not have an identifiable emergent medical condition that warrants inpatient hospitalization at this time. The patient is deemed safe for discharge with outpatient follow-up. We discussed follow up with the patient's primary care doctor within 24 to 48 hours as needed. We also discussed return to the emergency room for worsening symptoms or worsening condition. Outpatient referral: Cardiology Discharge Medications: Naprosyn, [place], Zofran NARCOTIC MEDICATION: The patient has been prescribed a narcotic medication during this encounter. The patient has been warned about the use of narcotics. The patient should not drive or operate heavy machinery while taking this medication. The patient was also warned about the addictive properties of narcotic medications. Narcan prescription WAS provided given one of the following criteria were met: 1. More than 5 tablets of [place] 10 mg or 10 tablets of [place] 5 mg were prescribed. 2. Concomitant opiate and benzodiazepine prescriptions were provided. 3. There is evidence of prior history of opiate abuse or overdose. Departure Diagnosis: Primary Impression: Pericarditis Pericarditis type: idiopathic Chronicity: acute Qualified Codes: I30.0 - Acute nonspecific idiopathic pericarditis Additional Impression: Chest pain Chest pain type: unspecified Qualified Codes: R07.9 - Chest pain, unspecified Condition: Stable BEN SIBLEY MD September 11, 2018 00:41
[2018-09-11] MEDS ORDERED: NAPR-985 PO (02:15)
[2018-09-11] MEDS ORDERED: HYDR-3980 PO (02:15)
[2018-09-11] MEDS ORDERED: ONDA4TAB14 PO (02:15)
[2018-09-11] MEDS ORDERED: NALO4SPR NS (02:15)
[2018-09-11 02:32] VITALS: BP 107/63; PULSE 73; RESP 18
== END 2018-09-11 02:38 | disposition home or self-care (01) ==
LOC: E/R 23:18
DX: I30.0 Acute nonspecific idiopathic pericarditis (principal); F17.210 Nicotine dependence, cigarettes, uncomplicated
CPT/HCPCS: 36415; 71045; 80048; 84484; 85025; 85610; 85730; 93005; 96361; 96374; 96375; 99285; J1885; J2270; J2405; J7030